=== PATIENT | male | born 1970 | race Caucasian/White ===

== ENCOUNTER → 2020-08-05 16:22 | Outpatient (CLI) | payer OTHER, SELFPAY ==
[2020-08-05 17:07] LABS: COVID19 -Nasal RAPID Negative (Negative)
== END ==
PROVIDERS: Visit Provider Physician Assistant
DX: R05 Cough (principal); R50.9 Fever, unspecified
CPT/HCPCS: 87635

== ENCOUNTER → 2021-06-30 08:47 | Outpatient (CLI) | payer OTHER, SELFPAY ==
[2021-06-30 21:02] LABS: COVID19 - ORCAS (NP or Nasal) Negative (Negative)
== END ==
PROVIDERS: Referring Provider Physician Assistant; Visit Provider Physician Assistant
DX: Z20.822 Contact with and (suspected) exposure to COVID-19 (principal)
CPT/HCPCS: U0003

== ENCOUNTER → 2024-01-05 11:01 | Outpatient (CLI) | payer SELFPAY ==
[2024-01-05 12:41] LABS: HIV 1 & 2 Ab/Ag 4th Gen Combo NEGATIVE (NEGATIVE)
[2024-01-05 14:27] LABS: Urine Chlamydia NOT DETECTED; Urine N gonorrhoeae NOT DETECTED
[2024-01-06 10:32] LABS: RPR Screen Non Reactive (Non Reactive)
[2024-01-06 16:25] LABS: Hep C Virus Ab w/Reflex Quant NEGATIVE s/c (NEGATIVE)
== END ==
LOC: LAB 11:04
PROVIDERS: Referring Provider Physician Assistant; Visit Provider Physician Assistant
DX: Z20.2 Contact with and (suspected) exposure to infections with a predominantly sexual mode of transmission (principal); Z11.3 Encounter for screening for infections with a predominantly sexual mode of transmission
CPT/HCPCS: 36415; 86592; 86803; 87389; 87491; 87591

== ENCOUNTER 2024-08-09 10:52 | Day surgery (SDC) | payer OTHER, SELFPAY ==
--- NOTE | 2024-08-09 | PATH_ITS ---
[facility] Accession Number: [id number] No. of containers..01 Tissue . 01 Material submitted: . rectum - RECTUM . 01 Diagnosis: RECTUM: Tubular adenoma. STO 08/11/2024 1326 Local . 01 Electronically signed: . Doe Marinelli MD, Pathologist NPI- [id number] . 01 Gross description: . Received in formalin with two patient identifiers and rectum, are three motley soft tissue fragments, 0.2 to 0.9 cm in greatest dimension, submitted entirely in A1. ([id number]) /MRV 08/11/20246 Local . 01 Pathologist provided ICD-10: D12.8 . 01 CPT . 656710 Specimen Comment: A courtesy copy of this report has been sent to [phone] Performed at: [address] [facility] [id number] MD Doe Marinelli MD Phone: [phone]
[2024-08-09 11:17] VITALS: BP 139/85; PULSE 82; RESP 16; TEMP 36.2; O2SAT 99
[2024-08-09] MEDS: LACTATED RINGERS 1,000 ML 42 ML IV (11:20)
--- NOTE | 2024-08-09 11:21 | PM.HP.1 ---
History of Present Illness History of Present Illness Chief complaint: Colonoscopy Narrative: Screening and family history of colon cancer in his elderly father [facility] Medical History (Updated 01/18/24 @ 09:57 by Natasha Garland PA-C) Exposure to trichomonas Social History Smoking Status: Never smoker Meds Home Medications and Allergies Home Medications Medication Instructions Recorded Confirmed Type amlodipine 5 mg PO BEDTIME 01/05/24 08/09/24 History omeprazole 20 mg PO DAILY 01/05/24 08/09/24 History metoprolol tartrate 25 mg tablet 25 mg PO DAILY 08/09/24 08/09/24 History semaglutide 1 mg/dose (4 mg/3 mL) 1 mg SUBCUT QWEEK 08/09/24 08/09/24 History subcutaneous pen injector (Ozempic) Allergies Allergy/AdvReac Type Severity Reaction Status Date / Time amoxicillin Allergy Unknown Verified 08/09/24 11:09 Sulfa (Sulfonamide Allergy Unknown Verified 08/09/24 11:09 Antibiotics) Exam Vital Signs (past 8 hours): - 08/09/24 11:17 Temperature 97.1 F L Pulse Rate 82 Respiratory Rate 16 Blood Pressure 139/85 Pulse Oximetry 99 Oxygen Delivery Method Room Air Oxygen Delivery Method Room Air Narrative Exam Narrative: Oropharynx free of lesion Assessment & Plan Assessment & Plan narrative: Family history of colon cancer in a first-degree relative with no previous screening. Risks, benefits, alternatives have been explained. Time-Based Coding :: [TOTAL MINUTES] spent with patient and on the chart (including review of chart, obtaining history, exam, reviewing outside data, placing orders, documenting exam and treatment plan, and counseling patient) on [DATE].
--- NOTE | 2024-08-09 11:23 | P.OP.COLON_ITS ---
Operative Date/Time/Diagnoses Date of procedure: 08/09/24 Pre-op diagnosis: See indication and findings Procedure & Clinicians Study performed: Colonoscopy Indications: Screening Surgeon: Rigo Eisenberg Procedure Notes Procedure in detail: After informed consent was obtained the patient was placed in left lateral d ecubitus position. The video scope was placed in the rectum slowly advanced cecum. Preparation was good. On slow withdrawal mucosa was carefully examined. The scope was removed. The patient tolerated procedure well. Blood loss none Complications none Sedation mac Findings 1. 1.2 cm pedunculated rectal polyp. This was hot snared and removed completely 2. Otherwise negative colonoscopy to cecum though a perfect view under the IC valve was not obtained I would suggest follow-up colonoscopy in 3 years but will also be in touch regarding pathology
[2024-08-09 12:11] VITALS: BP 124/87; PULSE 80; RESP 14; TEMP 36.2; O2SAT 99
[2024-08-09 12:16] VITALS: BP 129/91; PULSE 78; RESP 17; O2SAT 99
[2024-08-09 12:21] VITALS: BP 120/90; PULSE 88; RESP 14; TEMP 36.6; O2SAT 100
[2024-08-09 12:28] VITALS: BP 128/79; PULSE 80; RESP 11; TEMP 36.2; O2SAT 100
== END 2024-08-09 12:45 | disposition home or self-care (01) ==
PROVIDERS: Referring Provider Internal Medicine Gastroenterology; Visit Provider Internal Medicine Gastroenterology
PROC: 0DJD8ZZ Inspection of Lower Intestinal Tract, Via Natural or Artificial Opening Endoscopic (ICD-10-PCS; CPT 45378; principal; 2024-08-09 11:30)
DX: Z12.11 Encounter for screening for malignant neoplasm of colon (principal); D12.8 Benign neoplasm of rectum
CPT/HCPCS: 45385; J2250; J2704